=== PATIENT | female | born 1985 | race African-American/Black ===

== ENCOUNTER 2017-06-27 17:04 | Emergency (ER) | payer OTHER ==
[~2017-06-27] VITALS: Ht 162.6 cm; Wt 109.1 kg
[~2017-06-27 17:04] MED LIST: IRON325 M2 PO; MOTRIN 800800 MG/TAB PO; PERCOCET 325 MG1 TA2 PO; PRENATAL1 TA7 PO
[2017-06-27 17:06] VITALS: TEMP 98
[2017-06-27 18:04] LABS: BASO % 0.2 % (0.0-2.0); EOS % 0.5 % (0-4.0); GRAN # 6.3 (1.4-6.5); GRAN % 72.9 % (42.2-75.2); LYMPH # 1.6 (1.2-3.4); LYMPH % 18.5 % (20.0-51.0); MEAN CELL VOLUME 80 fl (80.0-100.0); MEAN CORPUSCULAR HGB CONC 32 g/dl (33.0-37.0); MEAN PLATELET VOLUME 12.9 fl (7.4-10.4); MONO # 0.7 (0.1-0.6); MONO % 7.6 % (1.7-9.3); PLATELET COUNT 178 K/mm3 (130-400); RED BLOOD COUNT 3.97 M/mm3 (4.10-5.30); REDCELL DISTRIBUTION WIDTH-CV 14.7 % (11.5-14.5); WHITE BLOOD COUNT 8.7 K/mm3 (4.8-10.8)
[2017-06-27 18:08] LABS: HEMATOCRIT 31.7 % (37.0-47.0); HEMOGLOBIN 10.2 g/dl (12.5-16.0); MEAN CORPUSCULAR HEMOGLOBIN 26 pg (27.0-31.0)
[2017-06-27 18:18] LABS: ADJUSTED CALCIUM 9.3 mg/dL (8.4-10.2); ALBUMIN 3.7 gm/dL (3.5-5.0); BILIRUBIN,TOTAL 0.5 mg/dL (0.0-1.0); C-REACTIVE PROTEIN 6.7 mg/dL (0.0-0.9); CALCIUM 9.1 mg/dL (8.4-10.2); CREATININE, serum 0.56 mg/dL (0.52-1.25); POTASSIUM 3.4 mmol/L (3.4-5.0); TOTAL PROTEIN 7.4 gm/dL (6.4-8.2)
[2017-06-27 19:34] LABS: PH 6 (5-8); URINE APPEARANCE Clear; URINE BACTERIA Rare /hpf; URINE BILIRUBIN Negative (NEGATIVE); URINE BLOOD Negative (NEGATIVE); URINE COLOR Yellow; URINE GLUCOSE Negative (NEGATIVE); URINE KETONE 2+ (NEGATIVE); URINE RBC 0-2 /hpf; URINE WBC 0-2 /hpf
[2017-06-27 19:37] VITALS: BP 147/83
[2017-06-27 20:01] VITALS: PULSE 91
== END 2017-06-27 20:01 | disposition home or self-care (01) ==
LOC: COL.ER 17:04
PROVIDERS: Emergency Medicine
DX: O99.341 Other mental disorders complicating pregnancy, first trimester (principal); F41.9 Anxiety disorder, unspecified; O26.891 Other specified pregnancy related conditions, first trimester; R06.02 Shortness of breath; Z3A.12 12 weeks gestation of pregnancy; Z86.73 Personal history of transient ischemic attack (TIA), and cerebral infarction without residual deficits; Z86.718 Personal history of other venous thrombosis and embolism
CPT/HCPCS: J7030

== ENCOUNTER 2017-12-29 03:20 | Inpatient (IN) | payer MEDICAID ==
[2017-12-29] VITALS (16 sets, daily range): BP systolic 103–133; BP diastolic 52–86; PULSE 66–88; TEMP 97.6–98.4
[~2017-12-29] VITALS: Ht 165.1 cm; Wt 112.7 kg
[2017-12-29 04:45] LABS: BASO % 0.1 % (0.0-2.0); EOS # 0.1 (0.0-0.7); EOS % 0.9 % (0-4.0); GRAN # 5.6 (1.4-6.5); GRAN % 70.4 % (42.2-75.2); HEMATOCRIT 29.9 % (37.0-47.0); HEMOGLOBIN 9.5 g/dl (12.5-16.0); LYMPH # 1.7 (1.2-3.4); LYMPH % 21.2 % (20.0-51.0); MEAN CELL VOLUME 80 fl (80.0-100.0); MEAN CORPUSCULAR HEMOGLOBIN 25 pg (27.0-31.0); MEAN CORPUSCULAR HGB CONC 32 g/dl (33.0-37.0); MEAN PLATELET VOLUME 13.7 fl (7.4-10.4); MONO # 0.6 (0.1-0.6); MONO % 7.3 % (1.7-9.3); PLATELET COUNT 138 K/mm3 (130-400); RED BLOOD COUNT 3.74 M/mm3 (4.10-5.30); REDCELL DISTRIBUTION WIDTH-CV 15.5 % (11.5-14.5)
[2017-12-30] VITALS: BP 107/40; PULSE 75; TEMP 98.5
[2017-12-30 03:35] VITALS: BP 112/52; PULSE 61; TEMP 98.7
[2017-12-30 07:25] VITALS: BP 122/64; PULSE 67; TEMP 97.4
[2017-12-30] MEDS ORDERED: IBU800 M1 PO (08:54)
[2017-12-30 16:10] VITALS: BP 118/60; PULSE 62; TEMP 99
[2017-12-30 20:00] VITALS: BP 121/62; PULSE 77; TEMP 98.4
[2017-12-31 08:00] VITALS: BP 107/53; PULSE 57; TEMP 98.5
== END 2017-12-31 13:50 | disposition home or self-care (01) | DRG 774 ==
LOC: LDRO 03:20 → LDR 03:42 → OB 03:42
PROVIDERS: Obstetrics & Gynecology
PROC: 10E0XZZ Delivery of Products of Conception, External Approach (ICD-10-PCS; principal; 2017-12-29)
DX: O34.211 Maternal care for low transverse scar from previous cesarean delivery (principal); N85.8 Other specified noninflammatory disorders of uterus; O98.312 Other infections with a predominantly sexual mode of transmission complicating pregnancy, second trimester; A56.02 Chlamydial vulvovaginitis; Z3A.39 39 weeks gestation of pregnancy; Z37.0 Single live birth
CPT/HCPCS: J2590; J7120

== ENCOUNTER 2018-03-31 19:57 | Emergency (ER) | payer OTHER, MEDICAID ==
[~2018-03-31] VITALS: Ht 160 cm; Wt 107.7 kg
[~2018-03-31 19:57] MED LIST changes: +IBU800 M1 PO
[2018-03-31 20:05] VITALS: BP 139/78; TEMP 98.1
[2018-03-31 22:55] VITALS: PULSE 68
== END 2018-03-31 22:57 | disposition home or self-care (01) ==
LOC: COL.ER 19:57
DX: S16.1XXA Strain of muscle, fascia and tendon at neck level, initial encounter (principal); V43.52XA Car driver injured in collision with other type car in traffic accident, initial encounter

== ENCOUNTER 2018-04-15 20:41 | Emergency (ER) | payer MEDICAID ==
[~2018-04-15] VITALS: Ht 162.6 cm; Wt 104.5 kg
[2018-04-15 20:45] VITALS: TEMP 97.7
[2018-04-15] MEDS ORDERED: ZANAFLEX 4MG TAB4 MG PO (21:02)
[2018-04-15] MEDS ORDERED: MOTRIN 600600 MG/TAB PO (21:02)
[2018-04-15 21:32] LABS: BASO % 0.3 % (0.0-2.0); EOS # 0.1 (0.0-0.7); GRAN # 3.8 (1.4-6.5); GRAN % 57.4 % (42.2-75.2); HEMOGLOBIN 11.3 g/dl (12.5-16.0); LYMPH # 2.1 (1.2-3.4); LYMPH % 32.3 % (20.0-51.0); MEAN CELL VOLUME 80 fl (80.0-100.0); MEAN CORPUSCULAR HEMOGLOBIN 26 pg (27.0-31.0); MEAN CORPUSCULAR HGB CONC 32 g/dl (33.0-37.0); MEAN PLATELET VOLUME 13.1 fl (7.4-10.4); MONO # 0.5 (0.1-0.6); MONO % 7.8 % (1.7-9.3); PLATELET COUNT 176 K/mm3 (130-400); RED BLOOD COUNT 4.44 M/mm3 (4.10-5.30)
[2018-04-15 21:34] LABS: HEMATOCRIT 35.6 % (37.0-47.0)
[2018-04-15 21:51] LABS: BILIRUBIN,TOTAL 0.2 mg/dL (0.0-1.0); C-REACTIVE PROTEIN 0.7 mg/dL (0.0-0.9); CALCIUM 9.3 mg/dL (8.4-10.2); CREATININE, serum 0.78 mg/dL (0.52-1.25); POTASSIUM 3.9 mmol/L (3.4-5.0); TOTAL PROTEIN 8.2 gm/dL (6.4-8.2)
[2018-04-15 22:19] LABS: THYROID STIMULATING HORMONE 0.813 uIU/mL (0.465-4.680)
[2018-04-15] MEDS ORDERED: ANTIVERT 25MG25 MG PO (23:18)
[2018-04-15 23:29] VITALS: BP 106/54; PULSE 66
== END 2018-04-15 23:34 | disposition home or self-care (01) ==
LOC: COL.ER 20:41
PROVIDERS: Nurse Practitioner
DX: R51 Headache (principal); R42 Dizziness and giddiness; Z86.73 Personal history of transient ischemic attack (TIA), and cerebral infarction without residual deficits; Z98.890 Other specified postprocedural states
CPT/HCPCS: J1200; J1885; J2550; J2765; J7030

== ENCOUNTER → 2018-05-27 | Outpatient (CLI) | payer MEDICAID ==
[~2018-05-27] VITALS: Ht 163.8 cm; Wt 109.3 kg
[~2018-05-27] MED LIST changes: +ANTIVERT 25MG25 MG PO; +MOTRIN 600600 MG/TAB PO; +ZANAFLEX 4MG TAB4 MG PO
[2018-05-27 15:15] VITALS: BP 132/66; PULSE 72
== END ==
LOC: LIGHT 13:31
DX: E16.1 Other hypoglycemia (principal); E66.01 Morbid (severe) obesity due to excess calories; Z68.41 Body mass index [BMI] 40.0-44.9, adult; I63.9 Cerebral infarction, unspecified
CPT/HCPCS: G0463

== ENCOUNTER → 2018-07-01 | Outpatient (CLI) | payer MEDICAID ==
[~2018-07-01] VITALS: Ht 163.8 cm; Wt 109.3 kg
[2018-07-01 15:23] VITALS: BP 114/76; PULSE 68
== END ==
LOC: LIGHT 11:51
DX: E16.9 Disorder of pancreatic internal secretion, unspecified (principal); E66.01 Morbid (severe) obesity due to excess calories; Z68.41 Body mass index [BMI] 40.0-44.9, adult; Z71.3 Dietary counseling and surveillance
CPT/HCPCS: G0463

== ENCOUNTER → 2018-08-05 | Outpatient (CLI) | payer MEDICAID ==
[~2018-08-05] VITALS: Ht 163.8 cm; Wt 107.5 kg
[2018-08-05 15:25] VITALS: BP 116/70; PULSE 80
== END ==
LOC: LIGHT 11:37
DX: E16.9 Disorder of pancreatic internal secretion, unspecified (principal); I63.9 Cerebral infarction, unspecified; E66.01 Morbid (severe) obesity due to excess calories; Z68.41 Body mass index [BMI] 40.0-44.9, adult; Z71.3 Dietary counseling and surveillance
CPT/HCPCS: G0463

== ENCOUNTER → 2018-08-24 | Outpatient (CLI) | payer MEDICAID | LOC: LIGHT 14:09 | DX: E16.9 Disorder of pancreatic internal secretion, unspecified (principal); E66.01 Morbid (severe) obesity due to excess calories; Z68.41 Body mass index [BMI] 40.0-44.9, adult; Z71.3 Dietary counseling and surveillance ==

== ENCOUNTER → 2018-09-07 | Outpatient (CLI) | payer MEDICAID | LOC: COL.RAD 08:15 | DX: M47.816 Spondylosis without myelopathy or radiculopathy, lumbar region (principal); M54.41 Lumbago with sciatica, right side; M54.42 Lumbago with sciatica, left side ==

== ENCOUNTER → 2018-09-30 | Outpatient (CLI) | payer MEDICAID ==
[~2018-09-30] VITALS: Ht 163.8 cm; Wt 109.1 kg
[2018-09-30 14:58] VITALS: BP 112/70; PULSE 80
== END ==
LOC: LIGHT 09-09 11:51
DX: E16.9 Disorder of pancreatic internal secretion, unspecified (principal); E66.01 Morbid (severe) obesity due to excess calories; Z68.41 Body mass index [BMI] 40.0-44.9, adult; Z71.3 Dietary counseling and surveillance
CPT/HCPCS: G0463

== ENCOUNTER → 2018-11-02 | Outpatient (CLI) | payer MEDICAID ==
[2018-11-02 11:48] LABS: ARTERIAL BLD GAS O2 SATURATION 97.1 % (92-100); ARTERIAL BLD GAS TCO2 CT 24.7; ARTERIAL BLOOD GAS BASE EXCESS -0.4 (-2-2); ARTERIAL BLOOD GAS HCO3 23.6 meq/L (22-26); ARTERIAL BLOOD GAS PCO2 36.3 mmHg (35-45); ARTERIAL BLOOD GAS PO2 97.7 mmHg (80-100); ARTERIAL BLOOD GAS pH 7.43 (7.35-7.45)
== END ==
LOC: COL.PUL 11:07
PROVIDERS: Internal Medicine Pulmonary Disease
DX: Z01.818 Encounter for other preprocedural examination (principal)

== ENCOUNTER → 2018-12-16 | Outpatient (CLI) | payer MEDICAID ==
[~2018-12-16] VITALS: Ht 163.8 cm; Wt 107.7 kg
[2018-12-16 10:30] VITALS: BP 128/74; PULSE 80
== END ==
LOC: LIGHT 10:28
DX: E16.9 Disorder of pancreatic internal secretion, unspecified (principal); E66.01 Morbid (severe) obesity due to excess calories; Z68.41 Body mass index [BMI] 40.0-44.9, adult; Z71.3 Dietary counseling and surveillance
CPT/HCPCS: G0463

== ENCOUNTER → 2019-07-13 | Outpatient (CLI) | payer MEDICAID | LOC: DIA.ED 13:17 | DX: O24.419 Gestational diabetes mellitus in pregnancy, unspecified control (principal); Z3A.24 24 weeks gestation of pregnancy | CPT/HCPCS: G0108 ==

== ENCOUNTER 2019-09-02 05:30 | Inpatient (IN) | payer MEDICAID ==
[2019-09-02] VITALS (41 sets, daily range): BP systolic 100–149; BP diastolic 55–92; PULSE 75–105; TEMP 98.1–98.7
[~2019-09-02] VITALS: Ht 162.6 cm; Wt 117.7 kg
--- NOTE | 2019-09-02 08:00 | NUR ---
Patient ambulatory to LR5, changed into own gown, FHR/TOCO monitors placed and explained. Patient denies any regular contractions,leaking of fluid, or vaginal bleeding. Plan of care discussed. 0825: IV started in left hand and unable to obtain labs, Lab called and notified. LR infusing. Assessment completed, consents gone over and signed, and packet given. 0850:SVE-2/50/-2 and patient tolerates well. Plan of care discussed.
[2019-09-02 08:40] LABS: BASO % 0.1 % (0.0-2.0); EOS # 0.1 (0.0-0.7); EOS % 1.3 % (0-4.0); GRAN % 72.5 % (42.2-75.2); LYMPH # 1.4 (1.2-3.4); MEAN CELL VOLUME 82 fl (80.0-100.0); MEAN CORPUSCULAR HEMOGLOBIN 26 pg (27.0-31.0); MEAN CORPUSCULAR HGB CONC 32 g/dl (33.0-37.0); MONO # 0.4 (0.1-0.6); PLATELET COUNT 119 K/mm3 (130-400); RED BLOOD COUNT 3.87 M/mm3 (4.10-5.30); REDCELL DISTRIBUTION WIDTH-CV 14.6 % (11.5-14.5)
[2019-09-02 08:43] LABS: HEMATOCRIT 31.7 % (37.0-47.0)
--- NOTE | 2019-09-02 08:55 | NUR ---
Blood sugar taken at this time-152. Patient states she ate a Mc[employer]iddle at 0730.
--- NOTE | 2019-09-02 10:50 | NUR ---
Blood sugar-84 1105: Dr. Segundo at bedside assessing patient and FHR strip. SVE-2/50/-2 and unable to AROM at this time. SONO done and vertex position confirmed at this time. Orders to have patient sit up on birthing ball for awhile and will be back to recheck SVE. 1107: Patient off monitors to void. Patient back and sitting up on birthing ball, difficulty tracing FHR and this RN adjusting monitor.
--- NOTE | 2019-09-02 12:05 | NUR ---
Dr Segundo at bedside and assessing patient and FHR strip. 1206: SVE-4/70/-2 and AROM at this time with meconium fluid noted. informs patient about the meconium and risks to baby. Orders to keep pitocin at 10Mu at this time. Pericare done and plan of care discussed.
--- NOTE | 2019-09-02 16:23 | NUR ---
BY DR JUÁREZ AT 1623. FOB CUT CORD, TO CARE OF ROSA ISELA TEJADA RN PLACENTA EXPRESSED AT 1628. PITOCIN TO 333 MLS/ HR. PERINEUM INTACT. DR JUÁREZ REMOVED RIGHT INNER THIGH SKIN TAG. METHERGINE GIVEN AT 1630 IM. ICE TO PERINEUM. RECOVERY STARTED AT 1630. WARM BLANKET PROVIDED.
[2019-09-03 04:06] VITALS: BP 113/59; PULSE 87; TEMP 98.4
[2019-09-03 08:07] VITALS: BP 122/78; PULSE 84
[2019-09-03 16:43] VITALS: BP 123/65; PULSE 85; TEMP 98.4
[2019-09-03 20:21] VITALS: BP 122/71; PULSE 85; TEMP 98
--- NOTE | 2019-09-04 09:00 | NUR ---
Rests in bed, alert. Denies any needs at this time.
[2019-09-04 09:45] VITALS: BP 119/65; PULSE 87; TEMP 98.1
[2019-09-04] MEDS ORDERED: LOVENOX 4040 MG/0.4 SQ (10:16)
[2019-09-04] MEDS ORDERED: IBU600 MG PO (10:17)
[2019-09-04 16:30] VITALS: BP 128/83; PULSE 79; TEMP 97.8
--- NOTE | 2019-09-04 18:45 | NUR ---
Pt discharged home ambulatory and escorted by with in carrier carseat. ID bands matched and paperwork reviewed and completed. Pt escorted off unit by staff member.
== END 2019-09-04 18:45 | disposition home or self-care (01) | DRG 805 ==
LOC: LDR 05:30 → OB 19:30
PROVIDERS: ADMIT Obstetrics & Gynecology
PROC: 10E0XZZ Delivery of Products of Conception, External Approach (ICD-10-PCS; principal; 2019-09-02)
PROC: 3E033VJ Introduction of Other Hormone into Peripheral Vein, Percutaneous Approach (ICD-10-PCS; 2019-09-02)
PROC: 10907ZC Drainage of Amniotic Fluid, Therapeutic from Products of Conception, Via Natural or Artificial Opening (ICD-10-PCS; 2019-09-02)
PROC: 0HBHXZZ Excision of Right Upper Leg Skin, External Approach (ICD-10-PCS; 2019-09-02)
DX: O62.3 Precipitate labor (principal); O44.13 Complete placenta previa with hemorrhage, third trimester; Z37.0 Single live birth; O34.211 Maternal care for low transverse scar from previous cesarean delivery; L91.0 Hypertrophic scar; O24.420 Gestational diabetes mellitus in childbirth, diet controlled; O75.89 Other specified complications of labor and delivery; O99.344 Other mental disorders complicating childbirth; O77.0 Labor and delivery complicated by meconium in amniotic fluid; O99.02 Anemia complicating childbirth; F32.9 Major depressive disorder, single episode, unspecified; D64.9 Anemia, unspecified; Z86.718 Personal history of other venous thrombosis and embolism; Z79.01 Long term (current) use of anticoagulants; Z3A.39 39 weeks gestation of pregnancy
CPT/HCPCS: J1650; J2210; J2590; J7120

== ENCOUNTER 2020-04-25 14:37 | Inpatient (IN) | payer MEDICAID ==
[~2020-04-25] VITALS: Ht 162.6 cm; Wt 117.9 kg
[~2020-04-25 14:37] MED LIST changes: +IBU600 MG PO; +LOVENOX 4040 MG/0.4 SQ; +PRENATAL VITAMI1 TA3 PO; -PRENATAL1 TA7 PO
[2020-05-16] VITALS (13 sets, daily range): BP systolic 134–160; BP diastolic 74–90; PULSE 65–80; TEMP 97.6–99.3
--- NOTE | 2020-05-16 08:20 | NUR ---
The patient ambulated back to [place] [facility] independently using a steady gait and appeared to tolerate the activity well. Vital signs obtained. Consent signed. 18G IV started in left upper arm with one stick, LR infusing without difficulty. Heart Reg. Lungs clear. Bowel sounds audible. Call light is within reach. The patient denies any further needs at this time. Will continue to monitor the patient.
--- NOTE | 2020-05-16 13:25 | NUR ---
Patient now resting post op. Her pain better managed after diaudid given. Pain all to her abdomen. She denies the need for nausea medication, but did have an episode of emesis. Patient has been up the the bathroom & voided. SILVER drain to compression. Lap site bandaids intact. Scds ble.
--- NOTE | 2020-05-16 19:55 | NUR ---
Patient resting in bed. She continues to struggle with pain & nausea. Medicated with Dilaudid & Zofran per orders, see Emar. Patient did have an episode of emesis again. Kpad was provided for comfort. Scds ble. Patient was up to the bathroom again. Patient plans for barium study first thing in the Am ,not able to tolerate this afternoon due to emesis. Vss on room air. IV to Int per orders. Patient has only has ice chips. No full liquids until after barium study complete. Bedside report to Malina RN
--- NOTE | 2020-05-16 20:49 | NUR ---
Pt in bed, has small amount of dark tinged emesis. Medicated with Zofran 4mg IVP and Dilaudid 0.25mg IV for pain 7/10 to abdomen. Is alert and oriented x4. lap sites to abdomen with bandaids and SILVER drain to bulb suction. Encouraged ambulation for gas pains. IV site to left AC without redness or swelling. Voiding well.
--- NOTE | 2020-05-16 20:52 | NUR ---
HAS SMALL AMOUNT OF BLOODY EMESIS. MEDICATED WITH ZOFRAN 4MG IVP AND DILAUDID 0.25MG IVP FOR PAIN 05/04 TO ABD. SILVER EMPTIED FOR 5CC OF BLOODY DRAINAGE.
--- NOTE | 2020-05-17 02:47 | NUR ---
Pt has small amount of emesis. Medicated with Zofran 4mg IVP at this time and Dilaudid 0.25mg IV for pain 04/04. Up ad leonardo in room.
[2020-05-17 04:05] VITALS: BP 139/69; PULSE 72; TEMP 98.7
--- NOTE | 2020-05-17 07:14 | NUR ---
[facility]
[2020-05-17 07:52] VITALS: BP 144/76; PULSE 64; TEMP 98.8
--- NOTE | 2020-05-17 08:30 | NUR ---
Patient in bed resting. Alert and oriented x 3. Denies pain at this time. SILVER with serosanguinous drainage present. Lap sites x 4 with bandaids are CDI. Denies further needs at this time.
--- NOTE | 2020-05-17 09:29 | NUR ---
Patient requests breast pump states she has 8 month old baby at home. Pump provided.
[2020-05-17 11:41] VITALS: BP 151/83; PULSE 72; TEMP 98.4
[2020-05-17] MEDS ORDERED: NORCO 325 MG-51 TAB PO (12:04)
[2020-05-17] MEDS ORDERED: ZOFRAN 4MG T4 MG/TAB PO (12:05)
--- NOTE | 2020-05-17 12:40 | NUR ---
Dr. Choi in to see patient.
--- NOTE | 2020-05-17 13:32 | NUR ---
SW met with the patient to discuss discharge plan. The patient lives in [place] with her , Víctor (ph#[phone]), and their children. She reports independence with ADLs and does not have any DME. The patient's PCP is Dr. Eligio Ruiz and she receives her medications at [facility]. She reports no difficulties obtaining her meds. The patient does not have advanced directives and she was not interested in completing them at this time. The patient plans to return home with her family upon discharge. No additional needs at this time.
--- NOTE | 2020-05-17 14:04 | NUR ---
Patient states she feels nauseated after attempting to eat some of her tomato soup this afternoon. Refuses zofran, denies pain as well. Denies further needs at this time.
--- NOTE | 2020-05-17 16:45 | NUR ---
Discharge education reviewed with patient. Educated on signs and symptoms of infection and when to call provider. Educated on all new medications and medications safety. Patient has appointments scheduled. All questions answered. No further needs at this time. INT to left AC discontinued, catheter tip intact. Patient will call when her ride is here for her.
--- NOTE | 2020-05-17 17:38 | NUR ---
Patient out by wheelchair with surgical staff. No further needs at this time.
== END 2020-05-17 17:38 | disposition home or self-care (01) | DRG 621 ==
LOC: SURG 05-16 07:19 → INPTSU 05-16 07:19 → SURG 05-16 09:00
PROVIDERS: ADMIT Surgery
PROC: 0DB64Z3 Excision of Stomach, Percutaneous Endoscopic Approach, Vertical (ICD-10-PCS; principal; 2020-05-16 09:00)
DX: E66.01 Morbid (severe) obesity due to excess calories (principal); M17.0 Bilateral primary osteoarthritis of knee; M47.9 Spondylosis, unspecified; Z68.41 Body mass index [BMI] 40.0-44.9, adult; Z86.73 Personal history of transient ischemic attack (TIA), and cerebral infarction without residual deficits
CPT/HCPCS: J0330; J0690; J1100; J1170; J2405; J2704; J3010; J7120

== ENCOUNTER → 2020-04-30 | Outpatient (CLI) | payer MEDICAID ==
[~2020-04-30] VITALS: Ht 162.6 cm; Wt 116.6 kg
[~2020-04-30] MED LIST changes: -PRENATAL VITAMI1 TA3 PO; +PRENATAL1 TA7 PO
[2020-04-30 13:39] VITALS: BP 134/66; PULSE 64
== END ==
LOC: LIGHT 11:08
DX: E66.01 Morbid (severe) obesity due to excess calories (principal); Z68.41 Body mass index [BMI] 40.0-44.9, adult; E16.1 Other hypoglycemia
CPT/HCPCS: G0463

== ENCOUNTER → 2020-05-07 | Outpatient (CLI) | payer MEDICAID ==
[~2020-05-07] MED LIST changes: +NORCO 325 MG-51 TAB PO; +PRENATAL VITAMI1 TA3 PO; -PRENATAL1 TA7 PO; +ZOFRAN 4MG T4 MG/TAB PO
== END ==
LOC: LIGHT 13:05
DX: E66.8 Other obesity (principal); Z68.41 Body mass index [BMI] 40.0-44.9, adult

== ENCOUNTER → 2020-05-10 | Outpatient (CLI) | payer MEDICAID | LOC: COL.LAB 08:00 | DX: Z01.89 Encounter for other specified special examinations (principal) ==

== ENCOUNTER 2021-07-31 10:19 | Inpatient (IN) | payer MEDICAID ==
[~2021-07-31] VITALS: Ht 162.6 cm; Wt 95.9 kg
[~2021-07-31 10:19] MED LIST changes: -PRENATAL TABLET PO
[2021-08-02] VITALS (31 sets, daily range): BP systolic 104–141; BP diastolic 44–84; PULSE 62–98; TEMP 97.8–98.6
[2021-08-02] MEDS ORDERED: PRENATAL TABLET PO (08:24)
[2021-08-02] MEDS ORDERED: LOVENOX 4040 MG/0.4 SQ (08:25)
[2021-08-02 09:03] LABS: BASO % 0.1 % (0.0-2.0); EOS % 0.6 % (0-4.0); GRAN # 5.4 K/mm3 (1.4-6.5); GRAN % 77.7 % (42.2-75.2); LYMPH # 1.1 K/mm3 (1.2-3.4); LYMPH % 15.2 % (20.0-51.0); MEAN CELL VOLUME 81 fl (80.0-100.0); MEAN CORPUSCULAR HGB CONC 31 g/dl (33.0-37.0); MEAN PLATELET VOLUME 13.9 fl (7.4-10.4); MONO # 0.4 K/mm3 (0.1-0.6); PLATELET COUNT 120 K/mm3 (130-400); RED BLOOD COUNT 3.49 M/mm3 (4.10-5.30); REDCELL DISTRIBUTION WIDTH-CV 14.8 % (11.5-14.5)
[2021-08-02 09:05] LABS: HEMATOCRIT 28.3 % (37.0-47.0); HEMOGLOBIN 8.9 g/dl (12.5-16.0); MEAN CORPUSCULAR HEMOGLOBIN 26 pg (27.0-31.0)
--- NOTE | 2021-08-02 11:11 | NUR ---
difficulty tracing FHR and contractions due to maternal position. Pt ambulating to bathroom. RN in LR4 monitoring pt.
--- NOTE | 2021-08-02 11:14 | NUR ---
DIFFICULTY TRACING FHR DUE TO MATERNAL POSITION. SITTING UPRIGHT IN ROCKING CHAIR. RN READJUSTING PT'S FHR MONITOR.
--- NOTE | 2021-08-02 15:22 | NUR ---
1326 SVE per this RN -. Pt getting more uncomfortable with contractions 1328 Dr. Lopez called and updated on patients SVE 1336 Dr. Lopez in patients room. Reviewing FHR strip/TOCO. [address] Lopez with light meconium fluid noted. [address] Lopez SVE. Pt begins to start pushing. 1402 Delivery of viable female . Cord clamped and cut by Dr. Lopez. stimulated and bulb suctioned on patient's chest. Rafal Montiel takes over care of . 1405 Spontaneous delivery of placenta. Pitocin bolus started per 333mu/hr per protocol. Fundal massage done. Firm/midline/small amt of bleeding noted. Pt is intact. Plan of care and safety precautions discussed. Pt verbalizes understanding.
[2021-08-02] MEDS ORDERED: MOTRIN 800800 MG/TAB PO (22:14)
[2021-08-03 02:00] VITALS: BP 116/52; PULSE 70; TEMP 98
[2021-08-03 08:27] VITALS: BP 114/62; PULSE 78; TEMP 98.1
--- NOTE | 2021-08-03 11:13 | NUR ---
Clay Roaster offered congrats to patient while spouse was in room.
[2021-08-03 16:18] VITALS: BP 124/64; PULSE 72; TEMP 98.1
[2021-08-03 19:45] VITALS: BP 119/53; PULSE 77; TEMP 99.1
[2021-08-04 07:23] VITALS: BP 112/64; PULSE 76; TEMP 98.2
== END 2021-08-04 12:45 | disposition home or self-care (01) | DRG 806 ==
LOC: OB 10:19 → LDR 08-02 07:48 → OB 08-02 14:40
PROVIDERS: ADMIT Obstetrics & Gynecology
PROC: 10E0XZZ Delivery of Products of Conception, External Approach (ICD-10-PCS; principal; 2021-08-02)
PROC: 10907ZC Drainage of Amniotic Fluid, Therapeutic from Products of Conception, Via Natural or Artificial Opening (ICD-10-PCS; 2021-08-02)
PROC: 3E033VJ Introduction of Other Hormone into Peripheral Vein, Percutaneous Approach (ICD-10-PCS; 2021-08-02)
DX: O77.0 Labor and delivery complicated by meconium in amniotic fluid (principal); O99.12 Other diseases of the blood and blood-forming organs and certain disorders involving the immune mechanism complicating childbirth; Z37.0 Single live birth; O69.81X0 Labor and delivery complicated by cord around neck, without compression, not applicable or unspecified; O34.211 Maternal care for low transverse scar from previous cesarean delivery; O99.02 Anemia complicating childbirth; D64.9 Anemia, unspecified; O99.344 Other mental disorders complicating childbirth; F32.A Depression, unspecified; D69.6 Thrombocytopenia, unspecified; Z3A.39 39 weeks gestation of pregnancy; Z79.01 Long term (current) use of anticoagulants; Z86.73 Personal history of transient ischemic attack (TIA), and cerebral infarction without residual deficits; Z86.718 Personal history of other venous thrombosis and embolism
CPT/HCPCS: J1650; J2590; J7120

== ENCOUNTER → 2021-07-31 | Outpatient (CLI) | payer MEDICAID ==
[~2021-07-31] MED LIST changes: +CENTRUM CHEWAB1 EAC3 CHEW; +PRENATAL TABLET PO
== END ==
LOC: ZCOL.LAB 07-29 19:09
DX: Z20.822 Contact with and (suspected) exposure to COVID-19 (principal)

== ENCOUNTER → 2021-08-14 | Outpatient (CLI) | payer MEDICAID ==
[~2021-08-14] MED LIST changes: +PRENATAL TABLET PO
--- NOTE | 2021-08-14 13:01 | NUR ---
Pt, Rose Jacques, presents for outpatient consult with 12 day old baby girl, Anne Jacques, for a evaluation. Anne is pt's 8th baby but she is having problems with sore nipples, baby has slow/low weight gain, she has not stooled in 5 days, and wants to eat every 2 hours. Anne was born on [birth year] and weighed 7#14.2oz (3580 gms). Pt states Anne was seen by Dr. Valente on 06/09/21 and she weighed 7#6oz. Pt started use of breast pump early on because the nipple soreness was unbearable for latching. She has since been using Menjivar's Nipple Cream and the tissue is healing nicely. She has not pumped x3 days since the soreness is improved. Anne has had a few random bottles of EBM (1-2 oz ) in the last few days as she does not seem to get satisfied enough for a deep sleep. Today Anne weighs 7#13.2oz (3550 gms). She has foul smelling gas, and a nice wet diaper her. Pt states she feels Anne has 6 voids daily. Pt also states she feels her milk supply is low. When she pumps it takes her 20 minutes to collect 2oz. Her breasts do not feel full by the next feeding. Pt works with latching Anne here, waiting patiently for her mouth to open widely, which takes a minute or two. After nursing Anne has a weight gain of 1oz (28gms). LC evaluates Anne's oral anatomy, the palate is WNL, but she does not open her jaw well and extend her tongue. LC able to palpate a sublingual frenulum that runs up the inside of the gum line. She also appears to have a lower lip teather that causes a crease line in her bottom lip. LC reviews oral teathers with pt, pt will consider an evaluation with a dentist for further advice. Pt uses her breastpump after nursing and collects 70ml. Anne provided 2oz formula by bottle per pts consent. Well tolerated. Impression: Oral teather, Low milk transfer, low milk supply. POC: Evalaution of oral teathers, breastfeed ad leonardo, supplement ~2oz EBM or formula per feeding, pump as many times as able after BF to collect and improve milk supply. F/U: one week with this LC. Pt verbalizes understanding of plan. Questions invited and answered.
== END ==
LOC: LAC 11:59
DX: Z39.1 Encounter for care and examination of lactating mother (principal); Z71.89 Other specified counseling